=== PATIENT | female | born 1945 | race Caucasian/White ===

== ENCOUNTER 2017-08-19 18:28 | Inpatient (IN) | payer MEDICARE, MEDICAID ==
[~2017-08-19] VITALS: Ht 172.7 cm; Wt 107.1 kg
[~2017-08-19 18:28] MED LIST: ADVAIR 100-501 EACH IH; ADVAIR HFA 115-12 GM IH; ADVAIR HFA 230-12 GM INH; ASPIRIN EC81 MG PO; ATROVENT15 ML NS; CALCIUM +D & M1 EACH PO; CEPHALEXIN500 MG PO; CHEWABLE-VITE1 EAC1 PO; CIPROFLOXACIN500 MG PO; COZAAR50 MG PO; ESTER-C 500 MG1 EACH PO; FISH OIL300 MG PO; FLAX SEED OIL1000 MG PO; FLUZONE HI180 MCG/07 IM; GLUCOPHAGE XR500 MG PO; HYDROCHLOROTHIA25 MG PO; IPRATROPIU0.2 MG/1 M INH; K-TAB ER20 MEQ PO; LEVAQUIN500 MG PO; LEVAQUIN750 MG PO; MAG-G27 MG PO; MAGNESIUM GLUC500 GM PO; METHYLPREDNISOLO4 M1 PO; METOPROLOL TART25 MG PO; N-ACETYL-L-CYS600 MG PO; NORCO 5-325 TA1 EACH PO; OMEPRAZOLE20 MG PO; PAXIL10 MG PO; PAXIL20 MG PO; PRAVACHOL80 MG PO; PRILOSEC20 MG PO; THEO-24300 MG PO; THEOPHYLLINE A300 MG PO; ZAFIRLUKAST20 MG PO; ZITHROMAX250 MG PO
--- NOTE | 2017-08-19 22:50 | NUR ---
PT ARRIVES TO FLOOR VIA STRETCHER WITH GRANDSON PRESENT. PT ABLE TO STAND AND TRANSFER TO HOSPITAL BED WITH 1 PA. PT COUGHING THROUGHOUT ADMISSION ASSESSMENT, REPORTS UNPRODUCTIVE. LUNG SOUNDS WITH RHONCI AND EXPIRATORY WHEEZE TO ALL LUNG SCHWARZ. PT REPORTS SLIGHT STOMACH UPSET, REQUETS JELLO TO CALM HER STOMACH, REPORTS THAT THIS IS HELPFUL. LOW GRADE TEMP, 99.0 AND REPORTS OF HEADACHE 5-6/10. PRN TYLENOL ADMINISTERED. CPOX IN PLACE, SA02 96% ON RA. PT STATES THAT DRIBBLING/INCONTINENCE WITH COUGHING IS CHRONNIC FOR HER. ATTENDS AND CHUX IN PLACE. ICE WATER PROVIDED TO PT. PT DENIES OTHER NEEDS AT THIS TIME. CALL LIGHT WITHIN REACH.
--- NOTE | 2017-08-20 00:32 | NUR ---
PT CALLS REPORTING PAIN IN R HAND, BRIAN. TO FINGERS AND THUMB. IV SITE FLUSHED, NO S/SX OF LEAKING OR INFILTRATION. KCL + 10MG LIDOCAINE INFUSION RUNNING AT ORDERED RATE. PT REQUESTS ICE FOR HAND. REPORTS PAIN LESSENED SINCE IV FLUSH. DENIES OTHER NEEDS AT THIS TIME. RT AT PT'S BEDSIDE.
--- NOTE | 2017-08-20 01:00 | NUR ---
NEW BAG OF KCL WITH 10MG OF LIDOCAINE STARTED ORDERED. PT STATES THAT HEADACHE PAIN 0/10 AT THIS TIME. REPORTS CONTINUING SLIGHT DISCOMFORT TO HAND. IV SITE REMAINS WNL, ICE BAG IN PLACE PER PT REQUEST. PT DENIES OTHER NEEDS AT THIS TIME. CALL LIGHT WITHIN REACH.
--- NOTE | 2017-08-20 02:20 | NUR ---
PT ASSESSMENT COMPLETE. PT LYING IN BED, APPEARS TO BE SLEEPING. WAKES EASILY. LUNGS CONTINUE TO BE ADVENTITIOUS THROUGHOUT. LOOSE, NON PRODUCTIVE COUGH REMAINS. PT DENIES SOB. SA02 94% ON RA. PT DENIES PAIN, STATES THAT IV IS STILL BOTHERSOME TO R HAND. STATES THAT ICE IS EFFECTIVE. EXPLANATION REGARDING KCL INFUSION, AND CURRENT BAG BEING LAST DOSE FOR THE NIGHT. PT STATES UNDERSTANDING. DENIES FURTHER NEEDS AT THIS TIME. CALL LIGHT WITHIN REACH.
--- NOTE | 2017-08-20 02:20 | NUR ---
NURSE NOTIFIED RE VS.
--- NOTE | 2017-08-20 03:14 | NUR ---
PATIENT CALLED. ASSISTED STANDBY TO THE BATHROOM. PATIENT IS BACK IN BED. 2 ICE PACK MADE FOR HER RIGHT ARM. CALL LIGHT WITHIN REACH.
--- NOTE | 2017-08-20 04:15 | NUR ---
PT RESTING IN BED WITH EYES CLOSED. WAKES BRIEFLY WHILE SUPERVISOR CELL ROOM IN ROOM. FALLS QUICKLY BACK TO SLEEP. CALL LIGHT WITHIN REACH.
--- NOTE | 2017-08-20 04:36 | NUR ---
PATIENT CALLED TO USE THE TOILET. STANDY ASSIST. PATIENT IS BACK TO BED. CALL LIGHT WITHIN REACH.
--- NOTE | 2017-08-20 05:27 | NUR ---
PT SLEPT WELL THROUGHOUT THE NIGHT. RHONCI AND EXPIRATORY WHEEZE TO ALL LUNG SCHWARZ. LOOSE NON-PRODUCTIVE COUGH CHRONIC FOR PT. PT ON RA. SPUTUM CULTURE NEEDED. CONTINUOUS PULSE OX IN PLACE. ATTENDS IN PLACE FOR DRIBBLING INCONTINENCE. 1 PA. SANCHEZ@ 75. ADA DIET. ACCUCHECKS AND SSI.
--- NOTE | 2017-08-20 06:13 | NUR ---
PT ASSESSMENT COMPLETE. PT DENIES PAIN, SOB, NAUSEA AT THIS TIME. LUNG SOUNDS WITH EXPIRATORY WHEEZE TO ALL LUNG SCHWARZ. PT CONTINUES TO HAVE NONPRODUCTIVE LOOSE COUGH BUT STATES THAT SHE "FEELS BETTER" THAN LAST NIGHT. DENIES NEEDS AT THIS TIME. CALL LIGHT WITHIN REACH. DIRECTOR CORRECTIONAL AGENCY AT BEDSIDE FOR VITALS.
--- NOTE | 2017-08-20 07:14 | NUR ---
BEDSIDE REPORT RECIEVED FROM FERCHO KIRBY. PT IS SLEEPING SOUNDLY.
--- NOTE | 2017-08-20 08:24 | NUR ---
PT AWAKE IN BED. PICKED UP ROOM. AM CARE. UPDATED ARE BANDS. FRESH ICE WATER. PT HAS CALL IGHT IN REACH.
--- NOTE | 2017-08-20 09:58 | NUR ---
PATIENT RESTING IN BED, WITH VISITORS. MORNING MEDICATIONS GIVEN. VITALS ARE STABLE. PATIENT HAS LOOSE SOUNDING, NON-PRODUCTIVE COUGH. TYLENOL 500MG GIVEN FOR 10 HEADACHE/COUGH ASSOCIATED PAIN.
--- NOTE | 2017-08-20 10:40 | NUR ---
PT SITTING UP IN BED, GETTING READY TO EAT OATMEAL. AM ASSESSMENT DONE. PT ON RA, LUNGS COARSE.=
--- NOTE | 2017-08-20 11:52 | NUR ---
PT UP IN BED. DID A CLEAN CATCH URIAN SAMPLE AND SENT IT TO THE LAB.
--- NOTE | 2017-08-20 14:21 | NUR ---
PT DOING WELL GOT HER SOME OJ. HAS CALL LIGHT IN REACH
--- NOTE | 2017-08-20 15:11 | NUR ---
PT VISITING WITH PASTORAL CARE IN ROOM. PROVIDED FRESH ICE WATER PER PT'S REQUEST. DENIED FURTHER NEEDS.
--- NOTE | 2017-08-20 17:55 | NUR ---
TOOK PATIENT ON A WALK FRESH ICE WATER.BACK IN BED
--- NOTE | 2017-08-20 18:39 | NUR ---
PT UP IN RECLINER MUCH OF SHIFT. LUNGS COARSE WITH EXPIRATORY WHEEZES NOTED OFTEN DURING THIS SHIFT. PT HAS A CHRONIC COUGH, WHICH SHE REPORTS IS WORSENED DUE TO HER COMMUNITY AQUIRED PNA. PT IS ON RA, OXYGEN SATURATION LEVEL GREATER THAN 90%. PT HAS EPISODES OF INCONTINENCE, WEARS ATTENDS. PER DR. MENDOZA, HAS LR INFUSING AT 50CC/HR, AND AFTER THE CURRENT BAG OF IVF IS COMPLETE, PT IS TO BE SALINE LOCKED. REPORTED A HEADACHE THIS AM, RECIEVED ACETAMINOPHEN PRN, REPORTED RELIEF WITH THIS, WITH NO FURTHER C/O HEADACE. DENIED ANY OTHER NEEDS FOR PRN MEDICATIONS.
--- NOTE | 2017-08-20 19:15 | NUR ---
BEDSIDE REPORT RECEIVED FROM OFFGOING RN. PT LYING IN BED. DENIES NEEDS AT THIS TIME. CALL LIGHT WITHIN REACH.
--- NOTE | 2017-08-20 21:10 | NUR ---
PT ASSESSMENT COMPLETED. PT SITTING UP IN CHAIR WATCHING TV, RECEIVING NEB TX. PT DENIES PAIN, SOB, OR NAUSEA. EXPIRATORY WHEEZES AUSCULTATED TO ALL LUNG SCHWARZ. PT CONTINUOUS TO HAVE LOOSE, NON PRODUCTIVE COUGH. STATES THAT THIS IS CHRONIC FOR HER. PT REQUESTING FRUIT CUP, PROVIDED. PT DENIES OTHER NEEDS AT THIS TIME. CALL LIGHT WITHIN REACH.
--- NOTE | 2017-08-21 00:50 | NUR ---
PT RESTING IN BED WITH EYES CLOSED. RESPIRATIONS EVEN AND UNLABORED. PT APPEARS TO BE SLEEPING. CALL LIGHT WITHIN REACH.
--- NOTE | 2017-08-21 02:56 | NUR ---
PT ASSISTED TO BATHROOM WITH 1 PA, TOLERATED WELL. PT DENIES PAIN, NAUSEA, SOB. ASSESSMENT COMPLETED. PT CONTINUES WITH EXPIRATORY WHEEZES TO ALL LUNG SCHWARZ. LOOSE NONPRODUCTIVE COUGH UNCHANGED. ABD NON-TENDER, PT DENIES NAUSEA. PT DENIES NEEDS AT THIS TIME. CALL LIGHT WITHIN REACH.
--- NOTE | 2017-08-21 05:12 | NUR ---
PT RESTED WELL THROUGHOUT THE NIGHT, UNEVENTFUL. LUNG SOUNDS CONTINUE TO BE ADVENTITIOUS, LOOSE NONPRODUCTIVE COUGH CONTINUES. RA. NO N/V/D PRESENT THIS SHIFT. ATTENDS IN PLACE FOR INCONTINENCE. NO REPORTS OF PAIN. IV SL. 1 SBA TO BATHROOM.
--- NOTE | 2017-08-21 07:31 | NUR ---
RECIEVED BEDSIDE REPORT FROM FERCHO KIRBY. PT AWAKE, ALERT. UP TO BATHROOM WITH STANDBY ASSIST WITH SHENA CAGLE, THEN TO BED.
--- NOTE | 2017-08-21 07:45 | NUR ---
PT C/O 08/01 HEADACHE, GAVE ACETAMINOPHEN 500 MG PO PRN. TURNED LIGHTS OFF, GAVE PT WASHCLOTH TO COVER EYES PER HER REQUEST. PT CURRENTLY RECIEVING BREATHING TREATMENT FROM JAYA, RESPIRATORY THERAPIST.
--- NOTE | 2017-08-21 08:01 | NUR ---
HELPED PT TO BR, SHE DID FINE, WAS INCONT. AND CHANGED HER BRIEF AND TOP BED SHEET. CALL LIGHT IN PLACE, NURSE AYDE WAS IN ROOM WITH HER WHEN I LEFT.
--- NOTE | 2017-08-21 10:41 | NUR ---
PT LAYING IN BED, SLEEPING SOUNDLY WITH WASHCLOTH OVER EYES. ROOM DIM. NO S/S DITRESS OR DISCOMFORT.
--- NOTE | 2017-08-21 11:19 | NUR ---
PT UP, AMBULATED IN HALLS AROUND "LOOP" OF MED/SURG X 1 WITH STANDBY ASSIST. STEADY ON FEET, DENIED PAIN OR DISCOMFORT. NO SHORTNESS OF BREATH WITH AMBULATION NOTED. DR. MENDOZA IN WITH PT AT THIS TIME.
[2017-08-21] MEDS ORDERED: AZITHROMYCIN500 MG PO (11:25)
[2017-08-21] MEDS ORDERED: CEFPODOXIME PR200 MG PO (11:26)
[2017-08-21] MEDS ORDERED: ZAFIRLUKAST20 MG PO (11:42)
== END 2017-08-21 13:05 | disposition home or self-care (01) | DRG 190 ==
LOC: ED 18:28 → MS 21:48
PROVIDERS: ADMIT Internal Medicine
DX: J44.0 Chronic obstructive pulmonary disease with (acute) lower respiratory infection (principal); J15.4 Pneumonia due to other streptococci; I10 Essential (primary) hypertension; E11.9 Type 2 diabetes mellitus without complications; K21.9 Gastro-esophageal reflux disease without esophagitis; E78.5 Hyperlipidemia, unspecified; F39 Unspecified mood [affective] disorder; J84.10 Pulmonary fibrosis, unspecified; Z79.84 Long term (current) use of oral hypoglycemic drugs
CPT/HCPCS: 71010; 80053; 80198; 83605; 83735; 85025; 87040; 87076; 87077; 87184; 87185; 87275; 87276; 87449; 87502; 87899; 90662; 94640; G0008; J0456; J0696; J1650; J2405; J3480; J7030; J7120

== ENCOUNTER 2019-01-21 06:20 | Day surgery (SDC) | payer MEDICARE, MEDICAID ==
[~2019-01-21] VITALS: Ht 170.2 cm; Wt 106.6 kg
[~2019-01-21 06:20] MED LIST changes: +AZITHROMYCIN500 MG PO; +CEFPODOXIME PR200 MG PO; +FAMOTIDINE40 MG PO; +IMITREX100 MG PO; +TOPAMAX25 MG PO; +VENTOLIN HFA18 GM INH
--- NOTE | 2019-01-21 08:19 | NUR ---
01/21/19 0819 Emmie Carr 0805 PT ARRIVED IN PACU SLEEPY WITH NO C/O'S. ABD SOFT. PASSING FLATUS. 0810 AT BEDSIDE TALKING TO PT.
--- NOTE | 2019-01-21 18:09 | OR ---
[facility] [address] [place], [place] [address] Signed DATE OF OPERATION: 01/21/2019 SURGEON: Gay Abdi MD PREOPERATIVE DIAGNOSES: 1. Family history of colon cancer (sisters x2). 2. History of polyp, 2007. POSTOPERATIVE DIAGNOSES: 1. Sigmoid diverticulosis. 2. Small polyp at 40 cm (excised). 3. Mild cecitis. PROCEDURE: Total colonoscopy to cecum with biopsy of cecum and cold morcellation polypectomy of polyp x1. ANESTHESIA: Intravenous sedation, fentanyl 150 mcg and Versed 4 mg. INDICATION: This 73-year-old white woman, who has a family history of colon cancer in two sisters, one who of the disease. The patient has undergone colonoscopy in the past and is referred by Bulmaro Urbano MD., for surveillance colonoscopy. Her last colonoscopy was in 2013. She last had a hyperplastic polyp noted in 2007. Her colonoscopy in 2013 was normal. She was admitted at this time to undergo colonoscopy. She understands the risks of bleeding, infection, and perforation. FINDINGS: The prep was excellent. Complete colonoscopy was undertaken of the cecum without question. There was mild inflammation of the cecum, but no ulceration. Biopsy was obtained. There were numerous diverticula of the sigmoid and left colon. There was a small polyp at 40 cm, which was excised. There were no other findings of concern. DESCRIPTION OF PROCEDURE: The patient was brought to the endoscopy suite and placed in lateral decubitus position, given intravenous sedation to the point of slurred speech and nystagmus with full cardiopulmonary monitoring. Digital rectal examination was normal. Electronically Signed By: GAY ABDI MD 01/21/19 1809 PATIENT NAME: ROSELYN MARKHAM MARCH OPERATIVE REPORT DATE OF : 41 REPORT #: [id number] PHYSICIAN: GAY ABDI MD PCP: BULMARO URBANO MD REPORT IS CONFIDENTIAL AND NOT TO BE RELEASED WITHOUT AUTHORIZATION [facility] [address], [place] [address] Signed An Olympus video colonoscope was passed in the rectum and manipulated throughout the colon noting diverticula of the sigmoid and left colon. Additional sedation was given as needed. The scope was ultimately advanced to the cecum. The ileocecal valve and appendiceal orifice were well identified. There was mild inflammation of the cecum. A biopsy was obtained. Scope was withdrawn. Examination throughout showed no sign of abnormality until about 40 cm from the anal verge where a very small polyp was noted, this was excised with cold morcellation technique. Complete excision was accomplished. Diverticula were once again seen upon withdrawal of scope. Retroflexed view showed minimal internal hemorrhoidal change. The scope was removed and the patient taken to recovery room in good condition. CONCLUDING DIAGNOSIS: 1. Diverticulosis. 2. Mild cecitis. 3. Small polyp at 40 cm. PLAN: Recommend repeat colonoscopy in 5 years based on family history. She will return to the ongoing care of Dr. Urbano. Recommend high-fiber diet. MD AVERY Nina/DI /[id number] cc: Bulmaro Urbano MD Copies: BULMARO URBANO MD ~ Electronically Signed By: GAY ABDI MD 01/21/19 1809 PATIENT NAME: ROSELYN MARKHAM MARCH OPERATIVE REPORT DATE OF : 41 REPORT #: [id number] PHYSICIAN: GAY ABDI MD PCP: BULMARO URBANO MD REPORT IS CONFIDENTIAL AND NOT TO BE RELEASED WITHOUT AUTHORIZATION
== END 2019-01-21 08:40 | disposition home or self-care (01) ==
LOC: DS 06:20 → OPS 06:20 → DS 06:45 → OPS 06:45
PROVIDERS: Surgery
PROC: 0DBE8ZX Excision of Large Intestine, Via Natural or Artificial Opening Endoscopic, Diagnostic (ICD-10-PCS; 2019-01-21)
PROC: 0DBH8ZX Excision of Cecum, Via Natural or Artificial Opening Endoscopic, Diagnostic (ICD-10-PCS; principal; 2019-01-21 06:45)
DX: Z12.11 Encounter for screening for malignant neoplasm of colon (principal); K63.5 Polyp of colon; K52.9 Noninfective gastroenteritis and colitis, unspecified; K57.30 Diverticulosis of large intestine without perforation or abscess without bleeding; I10 Essential (primary) hypertension; E11.9 Type 2 diabetes mellitus without complications; F32.9 Major depressive disorder, single episode, unspecified; J45.909 Unspecified asthma, uncomplicated; K21.9 Gastro-esophageal reflux disease without esophagitis; G47.33 Obstructive sleep apnea (adult) (pediatric); Z80.0 Family history of malignant neoplasm of digestive organs; Z86.010 Personal history of colon polyps; Z98.890 Other specified postprocedural states; Z99.89 Dependence on other enabling machines and devices; Z88.6 Allergy status to analgesic agent; Z88.8 Allergy status to other drugs, medicaments and biological substances; Z79.899 Other long term (current) drug therapy; Z79.84 Long term (current) use of oral hypoglycemic drugs
CPT/HCPCS: 99153; G0500; J2250; J3010; J7120

== ENCOUNTER 2019-02-01 12:06 | Emergency (ER) | payer MEDICARE, MEDICAID ==
[~2019-02-01] VITALS: Ht 170.2 cm; Wt 104.3 kg
--- OUTSIDE RECORDS SUMMARY | ~2019-02-01 | XMS | Clinical Summary ---
Demographics + + + | Address | [address] | | | [place] [address] | + + + | Home Phone | | + + + | Preferred Language | Unknown | + + + | Marital Status | Single | + + + | Sikh Affiliation | Unknown | + + + | Race | White | + + + | Ethnic Group | Not or | + + + Author + + + | Author | [facility] REVENUE LOCATIONS | + + + | Organization | NON REVENUE LOCATIONS | + + + | Address | Unknown | + + + | Phone | Unavailable | + + + Support + + +---------+ + | Name | Relationship | Address | Phone | + + +---------+ + | BRIGID CELESTE | ECON | Unknown | | + + +---------+ + Care Team Providers + +------+ + | Care Insurance Producer Name | Role | Phone | + +------+ + | No Pcp Per Patient | PP | Unavailable | + +------+ + Source Comments FABY is fully live on both [facility] and [facility] Allergies + + + + + + | Active Allergy | Reactions | Severity | Noted | Comments | | | | | Date | | + + + + + + | Lisinopril | Cough | | 11/11/19 | | | | | | 15 | | + + + + + + Current Medications + + +-------+---------+------+------+-------+ | Prescription | Sig. | Disp. | Refills | Star | End | Statu | | | | | | t | Date | s | | | | | | Date | | | + + +-------+---------+------+------+-------+ | | | | | 01/0 | | Activ | | HYDROCHLOROTHIAZIDE | | | | 5/20 | | e | | 25 mg oral tablet | | | | 15 | | | + + +-------+---------+------+------+-------+ | LOSARTAN 50 mg | | | | 01/0 | | Activ | | oral tablet | | | | 5/20 | | e | | | | | | 15 | | | + + +-------+---------+------+------+-------+ | METFORMIN SR 500 | | | | 10/2 | | Activ | | mg oral tablet | | | | 7/20 | | e | | extended release 24 | | | | 14 | | | | hr | | | | | | | + + +-------+---------+------+------+-------+ | OMEPRAZOLE 20 mg | | | | 10/2 | | Activ | | oral capsule,delayed | | | | 7/20 | | e | | release(DR/EC) | | | | 14 | | | + + +-------+---------+------+------+-------+ | PAROXETINE 20 mg | | | | 10/2 | | Activ | | oral tablet | | | | 3/20 | | e | | | | | | 14 | | | + + +-------+---------+------+------+-------+ | PRAVASTATIN 80 mg | | | | 01/0 | | Activ | | oral tablet | | | | 5/20 | | e | | | | | | 15 | | | + + +-------+---------+------+------+-------+ | THEOPHYLLINE CR, | | | | 01/0 | | Activ | | 12 HOUR, 300 mg oral | | | | 5/20 | | e | | tablet extended | | | | 15 | | | | release 12 hr | | | | | | | + + +-------+---------+------+------+-------+ | TRIAMCINOLONE | Inhale. | | | | | Activ | | ACETONIDE (AZMACORT | | | | | | e | | INHL) | | | | | | | + + +-------+---------+------+------+-------+ | multivitamin oral | 1 tablet by mouth | | | 06/23 | | Activ | | tablet | daily | | | 01/09 | | e | | | | | | 12 | | | + + +-------+---------+------+------+-------+ | ipratropium 0.02 % | 1 dose in nebulizer | | | 06/23 | | Activ | | inhalation solution | 4 times daily | | | 01/09 | | e | | | | | | 12 | | | + + +-------+---------+------+------+-------+ | | 1 capsule by mouth | | | 06/23 | | Activ | | Calcium-Cholecalcife | twice daily | | | 01/09 | | e | | rol, D3, (CALCIUM | | | | 12 | | | | 600 + D,3,) 600 mg | | | | | | | | calcium- 200 unit | | | | | | | | oral capsule | | | | | | | + + +-------+---------+------+------+-------+ | ASCORBIC ACID, | Take by mouth. | | | 09/ | | Activ | | BULK, MISC | | | | 3/20 | | e | | | | | | 12 | | | + + +-------+---------+------+------+-------+ | aspirin EC | Take by mouth. | | | 09/ | | Activ | | (ASPIRIN LOW DOSE) | | | | 3/20 | | e | | 81 mg oral | | | | 12 | | | | tablet,delayed | | | | | | | | release (DR/EC) | | | | | | | + + +-------+---------+------+------+-------+ | acetylcysteine 600 | Take 600 mg by mouth | | | | | Activ | | mg oral capsule | two times daily. | | | | | e | + + +-------+---------+------+------+-------+ Active Problems + + + | Problem | Noted Date | + + + | Chronic cough | 12/01/2014 | + + + Family History + + +------+ + | Medical History | Relation | Name | Comments | + + +------+ + | Coronary Artery | Brother | | | | Disease | | | | + + +------+ + | Diabetes | Brother | | | + + +------+ + | Renal Disease | Brother | | | + + +------+ + | Stroke | Brother | | | + + +------+ + | Stroke | Father | | | + + +------+ + | Diabetes | Mother | | at 82 after hip fx and [place] | + + +------+ + | Heart Disease | Mother | | | + + +------+ + | Arthritis | Sister | | | + + +------+ + | Colon Cancer | Sister | | | + + +------+ + | Coronary Artery | Sister | | | | Disease | | | | + + +------+ + | Thyroid | Sister | | several neices | + + +------+ + | Movement Disorder | Neg Hx | | | + + +------+ + | Tremor | Neg Hx | | | + + +------+ + + +------+--------+ + | Relation | Name | Status | Comments | + +------+--------+ + | Brother | | | | + +------+--------+ + | Father | | | | + +------+--------+ + | Mother | | | | + +------+--------+ + | Sister | | | | + +------+--------+ + Social History + +-------+ +--------+------+ | Tobacco Use | Types | Packs/Day | Years | Date | | | | | Used | | + +-------+ +--------+------+ | Former Smoker | | 1 | 5 | | + +-------+ +--------+------+ + + | Comments: quit in 1969 | + + + + +---------+ + | Alcohol Use | Drinks/We | oz/Week | Comments | | | ek | | | + + +---------+ + | No | | | | + + +---------+ + + + + | Sex Assigned at | Date Recorded | | | | + + + | Not on file | | + + + Last Filed Vital Signs + + + + | Vital Sign | Reading | Time Taken | + + + + | Blood Pressure | 127/66 | 11/11/2014 2:12 PM PST | + + + + | Pulse | 83 | 11/11/2014 2:12 PM PST | + + + + | Temperature | - | - | + + + + | Respiratory Rate | - | - | + + + + | Oxygen Saturation | - | - | + + + + | Inhaled Oxygen | - | - | | Concentration | | | + + + + | Weight | 101.6 kg (224 lb) | 11/11/2014 2:12 PM PST | + + + + | Height | 172.7 cm (5' 8") | 11/11/2014 2:12 PM PST | + + + + | Body Mass Index | 34.06 | 11/11/2014 2:12 PM PST | + + + + Plan of Treatment + + + + + | Health Maintenance | Due Date | Last Done | Comments | + + + + + | Pneumococcal (Adult) | | | | | (1 of 2 - PCV13) | 8 | | | + + + + + | Influenza (Flu) | | | | | vaccination (#1) | 8 | | | + + + + + Results Not on filefrom Last 3 Months
--- OUTSIDE RECORDS SUMMARY | ~2019-02-01 | XMS | Clinical Summary ---
Demographics + + + | Address | [address] | | | [place] [address] | + + + | Home Phone | | + + + | Preferred Language | Unknown | + + + | Marital Status | Single | + + + | Jain Affiliation | [id number] | + + + | Race | Unknown | + + + | Ethnic Group | Unknown | + + + Author + + + | Author | [employer] | + + + | Organization | [facility] [employer] | + + + | Address | Unknown | + + + | Phone | Unavailable | + + + Support + + +---------+ + | Name | Relationship | Address | Phone | + + +---------+ + | Jacqui Redding | ECON | Unknown | | + + +---------+ + Care Team Providers + +------+ + | Care Pin Inserter Name | Role | Phone | + +------+ + | Wilber Urbano MD | PP | Unavailable | + +------+ + Allergies No Known Allergies Current Medications + + +-------+---------+------+------+-------+ | Prescription | Sig. | Disp. | Refills | Star | End | Statu | | | | | | t | Date | s | | | | | | Date | | | + + +-------+---------+------+------+-------+ | metoprolol | Take 25 mg by mouth | | | | | Activ | | (LOPRESSOR) 25 MG | 2 (two) times daily. | | | | | e | | tablet | | | | | | | + + +-------+---------+------+------+-------+ | metformin | Take 500 mg by mouth | | | | | Activ | | (GLUCOPHAGE) 500 MG | 2 (two) times daily | | | | | e | | tablet | with meals. | | | | | | + + +-------+---------+------+------+-------+ | aspirin 81 MG | Take 81 mg by mouth | | | | | Activ | | tablet | daily. | | | | | e | + + +-------+---------+------+------+-------+ | paroxetine (PAXIL) | Take 10 mg by mouth | | | | | Activ | | 10 MG tablet | every morning. | | | | | e | + + +-------+---------+------+------+-------+ | losartan (COZAAR) | Take 25 mg by mouth | | | | | Activ | | 25 MG tablet | daily. | | | | | e | + + +-------+---------+------+------+-------+ | Flaxseed, Linseed, | Take by mouth. | | | | | Activ | | (FLAX SEED OIL PO) | | | | | | e | + + +-------+---------+------+------+-------+ | | Take 1 tablet by | | | | | Activ | | glucosamine-chondroi | mouth 3 (three) | | | | | e | | tin 500-400 MG | times daily. | | | | | | | tablet | | | | | | | + + +-------+---------+------+------+-------+ | fish oil-omega-3 | Take 2 g by mouth | | | | | Activ | | fatty acids 1000 MG | daily. | | | | | e | | capsule | | | | | | | + + +-------+---------+------+------+-------+ | | Take 25 mg by mouth | | | | | Activ | | hydrochlorothiazide | daily. | | | | | e | | (HYDRODIURIL) 25 MG | | | | | | | | tablet | | | | | | | + + +-------+---------+------+------+-------+ | loratadine | Take 10 mg by mouth | | | | | Activ | | (CLARITIN) 10 MG | daily. | | | | | e | | tablet | | | | | | | + + +-------+---------+------+------+-------+ | cetirizine | Take 10 mg by mouth | | | | | Activ | | (ZYRTEC) 10 MG | daily. | | | | | e | | tablet | | | | | | | + + +-------+---------+------+------+-------+ | pravastatin | Take 10 mg by mouth | | | | | Activ | | (PRAVACHOL) 10 MG | daily. | | | | | e | | tablet | | | | | | | + + +-------+---------+------+------+-------+ | | Inhale 2 puffs into | | | | | Activ | | fluticasone-salmeter | the lungs 2 (two) | | | | | e | | ol (ADVAIR HFA) | times daily. | | | | | | | 115-21 MCG/ACT | | | | | | | | inhaler | | | | | | | + + +-------+---------+------+------+-------+ | omeprazole | Take 20 mg by mouth | | | | | Activ | | (PRILOSEC) 20 MG | daily. | | | | | e | | capsule | | | | | | | + + +-------+---------+------+------+-------+ Active Problems Not on file Social History + +-------+ +--------+------+ | Tobacco Use | Types | Packs/Day | Years | Date | | | | | Used | | + +-------+ +--------+------+ | Former Smoker | | | | | + +-------+ +--------+------+ + +---+---+---+ | Smokeless Tobacco: | | | | | Never Used | | | | + +---+---+---+ + + +---------+ + | Alcohol Use [...] + + + | Blood Pressure | 134/49 | 03/30/2012 4:52 PM PDT | + + + + | Pulse | 96 | 03/30/2012 4:52 PM PDT | + + + + | Temperature | 36.1 C (97 F) | 03/30/2012 4:52 PM PDT | + + + + | Respiratory Rate | 18 | 03/30/2012 4:52 PM PDT | + + + + | Oxygen Saturation | 96% | 03/30/2012 4:52 PM PDT | + + + + | Inhaled Oxygen | - | - | | Concentration | | | + + + + | Weight | 109.3 kg (241 lb) | 03/30/2012 1:38 PM PDT | + + + + | Height | 172.7 cm (5' 8") | 03/30/2012 1:38 PM PDT | + + + + | Body Mass Index | 36.64 | 03/30/2012 1:38 PM PDT | + + + + Plan of Treatment Not on file Results Not on filefrom Last 3 Months Insurance + +--------+ +--------+-------+---------+ | Payer | Benefi | Subscriber | Type | Phone | Address | | | t Plan | ID | | | | | | / | | | | | | | Group | | | | | + +--------+ +--------+-------+---------+ | [place] - [employer] | [place] | [id number] | [employer] | | | | FAMILY | LEON | | re | | | | | CARE | | | | | + +--------+ +--------+-------+---------+ + +--------+ +--------+ + + | Guarantor Name | Accoun | Relation to | Date | Phone | Billing Address | | | t Type | Patient | of | | | | | | | | | | + +--------+ +--------+ + + | LEYDA MARKHAM | Person | Self [birth year] Home: | [address] | | | al/Fam | | 1945 | [phone] [place] | | | leon | | [phone] | + +--------+ +--------+ + +
--- OUTSIDE RECORDS SUMMARY | ~2019-02-01 | XMS | Clinical Summary ---
Demographics + + + | Address | [address] | | | [place] [address] | + + + | Home Phone | | + + + | Preferred Language | Unknown | + + + | Marital Status | | + + + | Nondenominational Affiliation | Unknown | + + + | Race | Unknown | + + + | Ethnic Group | Unknown | + + + Author + + + | Author | [facility] | | | and [place] | + + + | Organization | [facility] | | | and [place] | + + + | Address | Unknown | + + + | Phone | Unavailable | + + + Support + + +---------+ + | Name | Relationship | Address | Phone | + + +---------+ + | Linwood Guadalupe | ECON | Unknown | | + + +---------+ + | Jacqui Redding | ECON | Unknown | | + + +---------+ + Care Team Providers + +------+ + | Care Auto Brake Mechanic Name | Role | Phone | + +------+ + PP | Unavailable | + +------+ + Allergies No Known Allergies Medications + + + +---------+------+------+-------+ | Medication | Sig | Dispensed | Refills | Star | End | Statu | | | | | | t | Date | s | | | | | | Date | | | + + + +---------+------+------+-------+ | | 2 puffs inhaled | | 0 | 09/1 | | Activ | | fluticasone-salmeter | twice daily | | | 3/20 | | e | | ol (ADVAIR HFA) | | | | 12 | | | | 115-21 MCG/ACT | | | | | | | | inhaler | | | | | | | + + + +---------+------+------+-------+ | losartan (COZAAR) | Take 50 mg by mouth | | 0 | 09 | | Activ | | 50 mg tablet | nightly. | | | 3/20 | | e | | | | | | 12 | | | + + + +---------+------+------+-------+ | cetirizine (ZYRTEC | 1/2 tablet by mouth | | 0 | 09/1 | | Activ | | ALLERGY) 10 mg | daily | | | 3/20 | | e | | tablet | | | | 12 | | | + + + +---------+------+------+-------+ | Calcium | 1 capsule by mouth | | 0 | 09/1 | | Activ | | Carbonate-Vitamin D | twice daily | | | 3/20 | | e | | 600-200 MG-UNIT CAPS | | | | 12 | | | + + + +---------+------+------+-------+ | multivitamin | 1 tablet by mouth | | 0 | 09/1 | | Activ | | (THERAGRAN) per | daily | | | 3/20 | | e | | tablet | | | | 12 | | | + + + +---------+------+------+-------+ | montelukast | Take 10 mg by mouth | | 0 | 09/1 | | Activ | | (SINGULAIR) 10 mg | Daily. | | | 3/20 | | e | | tablet | | | | 12 | | | + + + +---------+------+------+-------+ | ipratropium | 1 dose in nebulizer | | 0 | 09/1 | | Activ | | (ATROVENT) 500 | 4 times daily | | | 3/20 | | e | | mcg/2.5 mL nebulizer | | | | 12 | | | | solution | | | | | | | + + + +---------+------+------+-------+ | PARoxetine (PAXIL) | Take 10 mg by mouth | | 0 | 09/1 | | Activ | | 10 mg tablet | Daily. | | | 3/20 | | e | | | | | | 12 | | | + + + +---------+------+------+-------+ | | Take 750-600 mg by | | 0 | 09/1 | | Activ | | Glucosamine-Chondroi | mouth 2 times daily. | | | 3/20 | | e | | tin ([facility] | | | | 12 | | | | GLUCOSAMINE-CHONDROI | | | | | | | | TIN) 750-600 MG TABS | | | | | | | + + + +---------+------+------+-------+ | fluticasone | 2 sprays in each | | 0 | 09/1 | | Activ | | (FLONASE) 50 | nostril twice daily | | | 3/20 | | e | | mcg/nasal spray | | | | 12 | | | + + + +---------+------+------+-------+ | albuterol 2.5 mg/3 | Use in nebulizer | | 0 | 09/1 | | Activ | | mL nebulizer | every 4 hours as | | | 3/20 | | e | | solution | needed for shortness | | | 12 | | | | | of breath | | | | | | + + + +---------+------+------+-------+ | Bioflavonoid | Take 500-550 mg by | | 0 | 09/1 | | Activ | | Products (KIERSTEN-C) | mouth Daily. | | | 320 | | e | | 500-550 MG TABS | | | | 12 | | | + + + +---------+------+------+-------+ | pravastatin | Take 80 mg by mouth | | 0 | 09/1 | | Activ | | (PRAVACHOL) 80 MG | Daily. | | | 3/20 | | e | | tablet | | | | 12 | | | + + + +---------+------+------+-------+ | metFORMIN | Take 500 mg by mouth | | 0 | 09/1 | | Activ | | (GLUCOPHAGE) 500 mg | 2 times daily. | | | 3/20 | | e | | tablet | | | | 12 | | | + + + +---------+------+------+-------+ | | Take 25 mg by mouth | | 0 | 09/1 | | Activ | | hydrochlorothiazide | Daily. | | | 3/20 | | e | | 25 mg tablet | | | | 12 | | | + + + +---------+------+------+-------+ | aspirin (ASPIRIN | Take 81 mg by mouth | | 0 | 091 | | Activ | | LOW DOSE) 81 MG | Daily. | | | 3/20 | | e | | tablet | | | | 12 | | | + + + +---------+------+------+-------+ | Flaxseed, Linseed, | Take 1,000 mg by | | 0 | 09/1 | | Activ | | (FLAX SEED OIL) | mouth 2 times daily. | | | 3/20 | | e | | 1000 MG CAPS | | | | 12 | | | + + + +---------+------+------+-------+ | [place]-3 Fatty | CAPS; 1 capsule by | | 0 | 09/1 | | Activ | | Acids (FISH OIL PO) | mouth daily | | | 3/20 | | e | | | | | | 12 | | | + + + +---------+------+------+-------+ | guaiFENesin | Take 600 mg by mouth | | 0 | 09/1 | | Activ | | (MUCINEX) 600 mg 12 | 2 times daily. | | | 3/20 | | e | | hr tablet | | | | 12 | | | + + + +---------+------+------+-------+ | fluticasone | 2 sprays in each | | 0 | 02/2 | | Activ | | (FLONASE) 50 | nostril daily | | | 1/20 | | e | | mcg/nasal spray | | | | 12 | | | + + + +---------+------+------+-------+ | albuterol (PROAIR | 2 puffs inhaled | | 0 | 02/2 | | Activ | | HFA) 90 mcg/puff | every 4 hours as | | | 20 | | e | | inhaler | needed for shortness | | | 12 | | | | | of breath | | | | | | + + + +---------+------+------+-------+ | fluconazole | one tablet for 3 | | 0 | 04/0 | | Activ | | (DIFLUCAN) 100 mg | days | | | 07/12 | | e | | tablet | | | | 12 | | | + + + +---------+------+------+-------+ | predniSONE | Start 40 mg, taper | | 0 | 02/2 | | Activ | | (DELTASONE) 10 mg | off over 12 days | | | 20 | | e | | tablet | | | | 12 | | | + + + +---------+------+------+-------+ | DILTIAZEM HCL PO | TABS; One tablet by | | 0 | 03/2 | | Activ | | | mouth daily | | | 07/12 | | e | | | | | | 12 | | | + + + +---------+------+------+-------+ | Loratadine | TABS; One tablet by | | 0 | 03/2 | | Activ | | (CLARITIN PO) | mouth daily | | | 07/12 | | e | | | | | | 12 | | | + + + +---------+------+------+-------+ Active Problems + + + | Problem | Noted Date | + + + | ALLERGIC RHINITIS CAUSE UNSPECIFIED | 02/10/2012 | + + + + + | Overview: ICD-10 Record update | + + + + + | DYSPNEA | 12/13/2011 | + + + | LUMBAGO | | + + + | DEPRESSION | | + + + | HYPERCHOLESTEROLEMIA | | + + + | DIABETES MELLITUS, TYPE II | | + + + | ESSENTIAL HYPERTENSION, BENIGN | | + + + | ASTHMA | | + + + | GERD | | + + + | ASTHMA, EXTRINSIC, WITH ACUTE EXACERBATION | | + + + | WHEEZING | | + + + | CANDIDIASIS OF MOUTH | | + + + | IDIOPATHIC PULMONARY FIBROSIS | | + + + | ASTHMA, EXTRINSIC | | + + + | DYSPNEA ON EXERTION | | + + + | HYPERTENSION | | + + + | ACUTE BRONCHOSPASM | | + + + Immunizations + + + + | Name | Dates Previously Given | Next Due | + + + + | PNEUMOCOCCAL | 09/22/1999 | | | POLYSACCHARIDE | | | | 23-VALENT (PPSV23) | | | + + + + | TD PF (2 LF TETANUS) | 07/23/1998 | | | (ADOL/ADULT) | | | + + + + Social History + +-------+ +--------+------+ | Tobacco Use | Types | Packs/Day | Years | Date | | | | | Used | | + +-------+ +--------+------+ | Never Assessed | | | | | + +-------+ +--------+------+ + + + | Sex Assigned at | Date Recorded | | | | + + + | Not on file | | + + + + + + + | Job Start Date | Occupation | Industry | + + + + | Not on file | Not on file | Not on file | + + + + + + + + | Travel History | Travel Start | Travel End | + + + + + + | No recent travel history available. | + + Last Filed Vital Signs + + + + | Vital Sign | Reading | Time Taken | + + + + | Blood Pressure | 179/60 | 02/01/2012 0000 PDT | + + + + | Pulse | - | - | + + + + | Temperature | - | - | + + + + | Respiratory Rate | - | - | + + + + | Oxygen Saturation | - | - | + + + + | Inhaled Oxygen | - | - | | Concentration | | | + + + + | Weight | 110.7 kg (244 lb) | 02/01/2012 0000 PDT | + + + + | Height | 172.7 cm (5' 8") | 02/01/2012 0000 PDT | + + + + | Body Mass Index | 37.1 | 02/01/2012 0000 PDT | + + + + Plan of Treatment + + + + + | Health Maintenance | Due Date | Last Done | Comments | + + + + + | Vaccine: Zoster (1 | | | | | of 2) | 3 | | | + + + + + | Vaccine: | | 07/23/1998 | | | Dtap/Tdap/Td (1 - | 8 | | | | Tdap) | | | | + + + + + | Vaccine: | | 09/22/1999 | | | Pneumococcal 65+ | 8 | | | | Low/Medium Risk (1 | | | | | of 2 - PCV13) | | | | + + + + + | Vaccine: Influenza | | | | | (Season Ended) | 9 | | | + + + + + Results Not on filefrom Last 3 Months
--- OUTSIDE RECORDS SUMMARY | ~2019-02-01 | XMS | Clinical Summary ---
Demographics + + + | Address | [address] | | | [place] [address] | + + + | Home Phone | | + + + | Preferred Language | Unknown | + + + | Marital Status | Single | + + + | Nondenominational Affiliation [...] Team Providers + +------+ + | Care Crna Name | Role | Phone | + +------+ + | No Pcp Per Patient | PP | Unavailable | + +------+ + Source Comments FABY is fully live on both [facility] and [facility] Allergies + + + + + [...] | at 80 after hip fx and [place] | + + +------+ + | Heart [...]
--- OUTSIDE RECORDS SUMMARY | ~2019-02-01 | XMS | Clinical Summary ---
Demographics + + + | Address | [address] | | | [place] [address] | + + + | Home Phone | | + + + | Preferred Language | Unknown | + + + | Marital Status | | + + + | Confucianist Affiliation | Unknown | + + + | Race | Unknown | + + + | Ethnic Group | Unknown | + + + Author + + + | Author | [facility] | | | and [place] | + + + | Organization | [facility] | | | and [place] | [...] Team Providers + +------+ + | Care Sanitary Landfill Operator Name | Role | Phone | + [...] | | + + + +---------+------+------+-------+ | [place]-3 Fatty | CAPS; 1 capsule by | [...]
--- OUTSIDE RECORDS SUMMARY | ~2019-02-01 | XMS | Clinical Summary ---
Demographics + + + | Address | [address] | | | [place] [address] | + + + | Home Phone | | + + + | Preferred Language | Unknown | + + + | Marital Status | Single | + + + | Judaism Affiliation | 1067 | + + + | Race | Unknown | + + + | Ethnic Group | Unknown | + + + Author + + + | Author | [facility] | + + + | Organization | [facility] | + + + | Address | Unknown | + + + | Phone | Unavailable | + + + Support + + +---------+ + | Name | Relationship | Address | Phone | + + +---------+ + | Jacqui Redding | ECON | Unknown | | + + +---------+ + Care Team Providers + +------+ + | Care Returning Officer Name | Role | Phone | + [...] | [place] - [employer] | [place] | [id number] | [employer] | | | | FAMILY [...] | | al/Fam | | 1945 | [phone] | [place] | | | leon | | | [phone] | + +--------+ +--------+ + +
[2019-02-01] MEDS ORDERED: BACTRIM DS TAB1 EACH PO (15:50)
[2019-02-01] MEDS ORDERED: ZOFRAN4 MG PO (15:50)
== END 2019-02-01 17:48 | disposition home or self-care (01) ==
LOC: ED 12:06
DX: N39.0 Urinary tract infection, site not specified (principal); R11.2 Nausea with vomiting, unspecified; E87.6 Hypokalemia; K21.9 Gastro-esophageal reflux disease without esophagitis; E78.00 Pure hypercholesterolemia, unspecified; E11.9 Type 2 diabetes mellitus without complications; Z87.891 Personal history of nicotine dependence; Z90.710 Acquired absence of both cervix and uterus; Z88.6 Allergy status to analgesic agent; Z88.8 Allergy status to other drugs, medicaments and biological substances; Z79.82 Long term (current) use of aspirin; Z79.84 Long term (current) use of oral hypoglycemic drugs; Z79.899 Other long term (current) drug therapy
CPT/HCPCS: 80053; 81001; 83690; 85025; 96365; 96375; 96376; 99283-25; J0696; J2405

== ENCOUNTER 2024-08-26 11:27 | Day surgery (SDC) | payer MEDICARE, OTHER, MEDICAID ==
[~2024-08-26] VITALS: Ht 172.7 cm; Wt 109.1 kg
[~2024-08-26 11:27] MED LIST changes: +ADVAIR HFA 115-12 GM INH; +ARNUITY ELLIP100 MCG INH; +BACTRIM DS TAB1 EACH PO; +BUDESONIDE0.5 MG/2 M INH; +DULOXETINE HCL20 MG PO; -GLUCOPHAGE XR500 MG PO; +IBLOOD GLUCOSE TEST STRIP 1 EA TEST VI PRN; +IPRAT-ALBUT 0.5-3 ML INH; +LACTATED RINGER'S 1,000 ML IV SCH; +LIDOCAINE HCL 1% 5 ML SDV INJ ONE; +METFORMIN HCL500 M1 PO; +MIDAZOLAM HCL 5 MG/5 ML VIAL IV PRN; +PANTOPRAZOLE SO40 MG PO; +PEPCID40 MG PO; +TOPIRAMATE25 MG PO; +ZOFRAN4 MG PO; +fentaNYL citrate 100 MCG/2 ML VIAL IV PRN
[2024-08-26] MEDS ORDERED: ONDANSETRON ODT4 MG SL (11:34)
[2024-08-26] MEDS ORDERED: CARAFATE1 GM PO (11:36)
[2024-08-26] MEDS ORDERED: VENTOLIN HFA18 GM INH (11:42)
[2024-08-26 11:52] VITALS: BP 140/85
[2024-08-26] MEDS ORDERED: PANTOPRAZOLE SO40 MG PO (12:07)
[2024-08-26] MEDS ORDERED: CALCIUM 600 MG1 EAC7 PO (12:14)
[2024-08-26] MEDS ORDERED: CRANBERRY CONC500 MG PO (12:14)
[2024-08-26] MEDS ORDERED: MIDAZOLAM HCL 5 MG/5 ML VIAL ONE (12:51)
[2024-08-26] MEDS ORDERED: fentaNYL citrate 100 MCG/2 ML VIAL ONE (12:51)
[2024-08-26 14:27] VITALS: BP 133/59
--- NOTE | 2024-08-26 14:43 | NUR ---
08/26/24 1443 Emmie Carr 1355 PT ARRIVED IN PACU AWAKE. ABD SOFT AND PASSING FLATUS. 1415 SITTING UP IN BED SIPPING ON SODA. AT BEDSIDE. ALL QUESTIONS ANSWERED. 1425 DC INSTRUCTIONS GIVEN. 1435 LEFT VIA W/C.
--- NOTE | 2024-08-27 11:31 | OR ---
[facility] [address], [place] [address] Signed DATE OF OPERATION: 08/26/2024 SURGEON: Gay Abdi MD PREOPERATIVE DIAGNOSES: 1. Family history of colon cancer. 2. History of adenomatous polyp in 2019. POSTOPERATIVE DIAGNOSIS: Diverticulosis sigmoid. PROCEDURES: Total colonoscopy to cecum. ANESTHESIA: Intravenous sedation; fentanyl 100 mcg and Versed 5 mg. INDICATION: This 79-year-old woman is a patient of Dr. Urbano in [place]. She is well known to me from the past. She has history of tubular adenoma at 40 cm and colonoscopy in 2019. She additionally has two sisters, both have had colon cancer. She is currently asymptomatic, having no bleeding, diarrhea or constipation. She is admitted at this time to undergo surveillance colonoscopy, understand the risk of bleeding, infection, and perforation. FINDINGS: The prep was good. Complete colonoscopy was undertaken of the cecum. There was no evidence of polyp or colitis, but she did have diverticula of the sigmoid as she has had in the past. PROCEDURE IN DETAIL: The patient was brought to the endoscopy suite and placed in lateral decubitus position, given intravenous sedation to the point of slurred speech and nystagmus. Digital rectal examination was normal. An Olympus video colonoscope was passed in the rectum and manipulated throughout the colon noting diverticular changes of sigmoid and left colon. Scope was ultimately passed to the right colon with full visualization of the cecum, but without full intubation of the cecum. The ileocecal valve was normal. Scope was withdrawn from that point and examination throughout showed no sign of abnormality other than diverticula of the sigmoid and left colon. Retroflexed view of the rectum was normal. Scope was removed. The patient was taken to recovery room in good condition. Electronically Signed By: GAY ABDI MD 08/27/24 1131 PATIENT NAME: ROSELYN MARKHAM MARCH OPERATIVE REPORT DATE OF : 41 REPORT #: [id number] PHYSICIAN: GAY ABDI MD PCP: BULMARO URBANO MD REPORT IS CONFIDENTIAL AND NOT TO BE RELEASED WITHOUT AUTHORIZATION [facility] [address], [place] [address] Signed CONCLUDING DIAGNOSIS: Diverticulosis without evidence of polyp. PLAN: Recommend repeat colonoscopy in 5 years (if clinically appropriate at her advanced age at that time) on the basis of family history of colon cancer in two first-degree relatives (sisters). She will otherwise return to the ongoing care of Dr. Bulmaro Urbano in followup. MD AVERY Nina/MODL /[id number] cc: Bulmaro Urbano MD Copies: BULMARO URBANO MD ~ Electronically Signed By: GAY ABDI MD 08/27/24 1131 PATIENT NAME: ROSELYN MARKHAM MARCH OPERATIVE REPORT DATE OF : 41 REPORT #: [id number] PHYSICIAN: GAY ABDI MD PCP: BULMARO URBANO MD REPORT IS CONFIDENTIAL AND NOT TO BE RELEASED WITHOUT AUTHORIZATION
== END 2024-08-26 14:35 | disposition home or self-care (01) ==
LOC: DS 11:27
PROVIDERS: ATTEND Surgery
PROC: 0DJD8ZZ Inspection of Lower Intestinal Tract, Via Natural or Artificial Opening Endoscopic (ICD-10-PCS; principal; 2024-08-26 13:00)
DX: Z12.11 Encounter for screening for malignant neoplasm of colon (principal); K57.30 Diverticulosis of large intestine without perforation or abscess without bleeding; I10 Essential (primary) hypertension; E11.9 Type 2 diabetes mellitus without complications; J84.10 Pulmonary fibrosis, unspecified; G47.33 Obstructive sleep apnea (adult) (pediatric); K21.9 Gastro-esophageal reflux disease without esophagitis; Z80.0 Family history of malignant neoplasm of digestive organs; Z86.0101 Personal history of adenomatous and serrated colon polyps; Z88.8 Allergy status to other drugs, medicaments and biological substances; Z79.84 Long term (current) use of oral hypoglycemic drugs; Z79.899 Other long term (current) drug therapy
CPT/HCPCS: 99153; G0500; J2250; J3010; J7121

== ENCOUNTER 2025-03-24 06:50 | Day surgery (SDC) | payer MEDICARE, OTHER, MEDICAID ==
[2025-03-19 15:03] VITALS: BP 139/62
[~2025-03-24] VITALS: Ht 172.7 cm; Wt 107.0 kg
[~2025-03-24 06:50] MED LIST changes: +CALCIUM 600 MG1 EAC7 PO; +CARAFATE1 GM PO; +CRANBERRY CONC500 MG PO; -IBLOOD GLUCOSE TEST STRIP 1 EA TEST VI PRN; -LIDOCAINE HCL 1% 5 ML SDV INJ ONE; -MIDAZOLAM HCL 5 MG/5 ML VIAL IV PRN; +ONDANSETRON ODT4 MG SL; -fentaNYL citrate 100 MCG/2 ML VIAL IV PRN
[2025-03-24] MEDS ORDERED: LIDOCAINE 1% W/ EPI 1:200,000 30 ML SDV ONE (06:51)
[2025-03-24] MEDS ORDERED: BUPIVACAINE HCL 0.25% 50 ML MDV ONE (06:53)
[2025-03-24] MEDS ORDERED: IBLOOD GLUCOSE TEST STRIP 1 EA TEST VI PRN (07:00)
[2025-03-24] MEDS ORDERED: LIDOCAINE HCL 1% 5 ML SDV INJ ONE (07:00)
[2025-03-24] MEDS ORDERED: CEFAZOLIN SODIUM 2 GM/20 ML SYR IV SCH (07:00)
[2025-03-24 07:05] VITALS: BP 156/70
--- NOTE | 2025-03-24 07:32 | NUR ---
LYDIA AT [facility] WILL LEAVE AND COME BACK.
[2025-03-24] MEDS ORDERED: HYDROmorphone HCL 1 MG/ML SYR IV PRN (07:45)
[2025-03-24] MEDS ORDERED: HYDROCODONE/ACETA 5/325 TAB PO PRN (07:45)
[2025-03-24] MEDS ORDERED: OXYCODONE/APAP 5/325 TAB PO PRN (07:45)
[2025-03-24] MEDS ORDERED: ondansetron HCL 4 MG TAB PO PRN (07:45)
[2025-03-24] MEDS ORDERED: ondansetron HCL 4 MG/2 ML VIAL IV PRN (07:45)
--- NOTE | 2025-03-24 09:58 | NUR ---
DR MULLINS AND TEXTILE DESIGNS SALES REPRESENTATIVE AP IN TO TALK WITH PT.
[2025-03-24] MEDS ORDERED: LIDOCAINE HCL 2% 5 ML SDV ONE (10:15)
[2025-03-24] MEDS ORDERED: propofoL 200 MG/20 ML VIAL ONE ×3 (10:15→11:31)
[2025-03-24] MEDS ORDERED: fentaNYL citrate 100 MCG/2 ML VIAL ONE (10:37)
[2025-03-24] MEDS ORDERED: LACTATED RINGER'S 1,000 ML IV ONE (11:23)
--- NOTE | 2025-03-24 12:28 | NUR ---
03/24/25 1228 Bubba Phelan 1214: PT ARRIVED TO PACU VIA STETCHER ON RA. AWAK AND TALKING. PT DENIED PAIN OR NAUSEA AT THIS TIME. 1220: PT REMAINS ON RA. WITH NO COMPLAINTS 1228: PTS SAT 97% ON RA. NO COMPLAINTS OF PAIN AT THIS TIME.
[2025-03-24 12:46] VITALS: BP 128/55
== END 2025-03-24 12:55 | disposition home or self-care (01) ==
LOC: DS 06:50
PROVIDERS: ATTEND Urology
PROC: 00HV3MZ Insertion of Neurostimulator Lead into Spinal Cord, Percutaneous Approach (ICD-10-PCS; principal; 2025-03-24 08:50)
DX: N32.81 Overactive bladder (principal); N39.46 Mixed incontinence; I10 Essential (primary) hypertension; E11.9 Type 2 diabetes mellitus without complications; K21.9 Gastro-esophageal reflux disease without esophagitis; F32.A Depression, unspecified; Z88.8 Allergy status to other drugs, medicaments and biological substances; Z79.82 Long term (current) use of aspirin; Z79.899 Other long term (current) drug therapy
CPT/HCPCS: 00300; 76000; C1778; C1889; C1897; J0690; J2003; J2704; J3010; J7121

== ENCOUNTER 2025-04-07 07:25 | Day surgery (SDC) | payer MEDICARE, OTHER, MEDICAID ==
[~2025-04-07] VITALS: Ht 172.7 cm; Wt 108.0 kg
[~2025-04-07 07:25] MED LIST changes: +CEFAZOLIN SODIUM 2 GM/20 ML SYR IV SCH; +IBLOOD GLUCOSE TEST STRIP 1 EA TEST VI PRN; +LIDOCAINE HCL 1% 5 ML SDV INJ ONE
[2025-04-07] MEDS ORDERED: ondansetron HCL 4 MG/2 ML VIAL IV PRN ×2 (07:45→09:30)
[2025-04-07] MEDS ORDERED: HYDROCODONE/ACETA 5/325 TAB PO PRN (07:45)
[2025-04-07] MEDS ORDERED: MORPHINE SULFATE 4 MG/ML VIAL IV PRN (07:45)
[2025-04-07] MEDS ORDERED: TRAMADOL HCL 50 MG TAB PO PRN (07:45)
[2025-04-07 07:55] VITALS: BP 164/75
[2025-04-07] MEDS ORDERED: ondansetron HCL 4 MG/2 ML VIAL ONE (08:58)
[2025-04-07] MEDS ORDERED: propofoL 200 MG/20 ML VIAL ONE (08:58)
[2025-04-07] MEDS ORDERED: fentaNYL citrate 100 MCG/2 ML VIAL ONE (08:58)
[2025-04-07] MEDS ORDERED: LIDOCAINE HCL 2% 5 ML SDV ONE (08:58)
[2025-04-07] MEDS ORDERED: ACETAMINOPHEN 1,000 MG/100 ML VIAL ONE (08:58)
[2025-04-07] MEDS ORDERED: IBLOOD GLUCOSE TEST STRIP 1 EA TEST VI PRN (09:30)
[2025-04-07] MEDS ORDERED: fentaNYL citrate 50 MCG/ML SDV IV PRN (09:30)
[2025-04-07] MEDS ORDERED: PROCHLORPERAZINE EDISYLATE 10 MG/2 ML VIAL IV PRN (09:30)
[2025-04-07] MEDS ORDERED: droPERidol 5 MG/2 ML VIAL IV PRN (09:30)
[2025-04-07] MEDS ORDERED: NALOXONE HCL 0.4 MG SYR IV PRN (09:30)
[2025-04-07] MEDS ORDERED: MICONAZOLE NITRATE 1 EA BTL TOP SCH (10:15)
--- NOTE | 2025-04-07 10:43 | NUR ---
04/07/25 1043 Melissa Presley 1033-PT ARRIVES TO PACU, VIA STRETCHER, RESTING SEMI FOWLERS, PT A+OX4 DENIES PAIN OR NAUSEA, VSS ON 6L VIA MASK. 1040-PT TITRATED TO RA, VS REMAIN STABLE.
[2025-04-07 11:02] VITALS: BP 124/51
== END 2025-04-07 11:10 | disposition home or self-care (01) ==
LOC: DS 07:25
PROVIDERS: ATTEND Urology
PROC: 0JH70MZ Insertion of Stimulator Generator into Back Subcutaneous Tissue and Fascia, Open Approach (ICD-10-PCS; principal; 2025-04-07 08:50)
DX: N32.81 Overactive bladder (principal); N39.46 Mixed incontinence; I10 Essential (primary) hypertension; E11.9 Type 2 diabetes mellitus without complications; K21.9 Gastro-esophageal reflux disease without esophagitis; Z79.84 Long term (current) use of oral hypoglycemic drugs; Z79.899 Other long term (current) drug therapy; Z88.8 Allergy status to other drugs, medicaments and biological substances
CPT/HCPCS: 00400; C1767; C1787; J0131; J0690; J2003; J2405; J2704; J3010; J7121